=== PATIENT | male | born 1965 | race Caucasian/White ===

== ENCOUNTER 2017-11-08 07:00 | Emergency (ER) | payer BC, OTHER ==
[~2017-11-08] VITALS: Ht 175.3 cm; Wt 176.0 kg
[~2017-11-08 07:00] MED LIST: CEPH500T PO; FURO-69 PO; HYDR-963 PO; LISI40TA PO; METF10003 PO; MUPI15CR TP; POTA10CA PO
[2017-11-08 07:41] LABS: BASO # 0.1 x10^3/uL (0.0-0.2); BASO % 1 % (0-3); EOS # 0.2 x10^3/uL (0.0-0.7); EOS % 2 % (0-3); HEMATOCRIT 45.1 % (39.0-53.0); LYMPH # 0.9 x10^3/uL (1.0-4.8); LYMPH % 9 % (24-48); MEAN CORPUSCULAR HEMOGLOBIN 33 pg (25-35); MEAN CORPUSCULAR HGB CONC 35 g/dL (31-37); MEAN CORPUSCULAR VOLUME 92 fL (79-100); MONO # 0.7 x10^3/uL (0.0-1.1); MONO % 7 % (0-9); NEUT # 7.8 x10^3uL (1.8-7.7); NEUT % 81 % (31-73); PLATELET COUNT 160 x10^3/uL (140-400); RED CELL DISTRIBUTION WIDTH 13.2 % (11.5-14.5); WHITE BLOOD COUNT 9.7 x10^3/uL (4.0-11.0)
[2017-11-08] MEDS ORDERED: ALBUTEROL SULFATE 2.5 MG/3 ML NEBU. NEB ONE (07:45)
[2017-11-08] MEDS ORDERED: IPRATROPIUM BROMIDE 0.5 MG/2.5 ML NEBU. NEB ONE (07:45)
--- NOTE | 2017-11-08 07:45 | EKG ---
[address] [address] Test Date: 2017-11-08 Test Time: 07:23:10 Pat Name: SUMAN OCHOA Department: Room: Gender: M [facility] Specialist: CHANA : 1965 Requested By: KIMBERLY GILL Order Number: [id number] Reading MD: Leon Kumar MD Measurements Intervals [place] Rate: 73 P: 0 GA: 140 QRS: 16 QRSD: 76 T: 60 QT: 360 QTc: 400 Interpretive Statements SINUS RHYTHM Electronically Signed On 11-14-2017 13:28:13 CDT by Leon Kumar MD
[2017-11-08 08:06] LABS: ALBUMIN 3.7 g/dL (3.4-5.0); ALBUMIN/GLOBULIN RATIO 0.9 (1.0-1.7); CALCIUM 8.5 mg/dL (8.5-10.1); CREATININE 0.9 mg/dL (0.7-1.3); GFR 88.3; TOTAL BILIRUBIN 0.7 mg/dL (0.2-1.0); TOTAL PROTEIN 7.8 g/dL (6.4-8.2)
--- NOTE | 2017-11-08 08:15 | RAD ---
CHEST PA LATERAL History: Cough, SOA, denies asthma. Non smoker. pt wt 400lbs Comparison: None. Findings: Cardiac size normal. Tortuous thoracic aorta. Pulmonary vasculature is upper limits of normal. There is left lower lobe airspace disease. Pulmonary vasculature is normal. No pleural effusion or pneumothorax is seen. There is no acute bone abnormality. IMPRESSION: 1. Left lower lobe airspace disease. 2. Borderline pulmonary vascular congestion. Electronically signed by: Terence Sanchez MD (11/08/2017 8:12 AM) [id number]
[2017-11-08 08:28] LABS: POTASSIUM 3.9 mmol/L (3.5-5.1)
[2017-11-08] MEDS ORDERED: cloNIDine HCL 0.1 MG TABLET PO ONE ×2 (08:30→09:30)
--- NOTE | 2017-11-08 09:10 | ED.ADGEN ---
Past History Past Medical History: Hypertension Past Surgical History: Appendectomy, Cholecystectomy Smoking: Non-smoker Alcohol Use: Heavy Drug Use: None Adult General Chief Complaint Chief Complaint Shortness of breath HPI HPI Patient is a 52-year-old male with history of hypertension, dyslipidemia who presents with sore throat 4 days, nonproductive cough and shortness of breath since yesterday at work. No nausea vomiting, no fever chills or sweats. No increased leg pain or swelling. No chest pain or palpitations. Denies orthopnea and paroxysmal nocturnal dyspnea. Denies history of CAD, CHF, COPD, DVT or PE. Patient is a non-smoker and consumes alcohol on a regular basis.. [] Review of Systems Review of Systems ROS as per HPI[] All other systems were reviewed and found to be within normal limits, except as documented in this note. Current Medications Current Medications Current Medications Medications (Trade) Dose Ordered Sig/Haris Start Time Stop Time Status Last Admin Dose Admin Albuterol Sulfate (Ventolin) 5 mg 1X ONCE 11/08/17 07:45 11/08/17 07:47 DC 11/08/17 07:38 5 MG Clonidine HCl (Catapres) 0.2 mg 1X ONCE 11/08/17 08:30 11/08/17 08:31 DC 11/08/17 08:31 0.2 MG Ipratropium [place] (Atrovent) 0.5 mg 1X ONCE 11/08/17 07:45 11/08/17 07:47 DC 11/08/17 07:38 0.5 MG Allergies Allergies Allergies Coded Allergies Type Severity Reaction Last Updated Verified No Known Drug Allergies 12/05/14 No Physical Exam Physical Exam Constitutional: Well developed, well nourished, no acute distress, non-toxic appearance. [] HENT: Normocephalic, atraumatic, bilateral external ears normal, oropharynx moist, no oral exudates, nose normal. [] Eyes: PERRLA, EOMI, conjunctiva normal, no discharge. [] Neck: Normal range of motion, no tenderness, supple, no stridor. [] Cardiovascular:Heart rate regular rhythm, no murmur, 1+ bipedal edema, negative Homans signs. [] Lungs & Thorax: Bilateral breath sounds clear to auscultation coarse rales in left lung hollis. [] Abdomen: Bowel sounds normal, soft, no tenderness. [] Skin: Warm, dry, no erythema, no rash. [] Back: No tenderness. [] Neurologic: Alert and oriented X 3, normal motor function, normal sensory function, no focal deficits noted. [] Psychologic: Affect normal, judgement normal, mood normal. [] Current Patient Data Vital Signs Vital Signs Date Time Temp Pulse Resp B/P (MAP) Pulse Ox O2 Delivery O2 Flow Rate FiO2 11/08/17 08:31 78 170/94 (119) 95 11/08/17 07:39 Room Air 11/08/17 07:14 97.7 20 Lab Results Laboratory Tests Test 11/08/17 07:20 White Blood Count 9.7 x10^3/uL (4.0-11.0) Red Blood Count 4.90 x10^6/uL (4.30-5.70) Hemoglobin 16.0 g/dL (13.0-17.5) Hematocrit 45.1 % (39.0-53.0) Mean Corpuscular Volume 92 fL (79-100) Mean Corpuscular Hemoglobin 33 pg (25-35) Mean Corpuscular Hemoglobin Concent 35 g/dL (31-37) Red Cell Distribution Width 13.2 % (11.5-14.5) Platelet Count 160 x10^3/uL (140-400) Neutrophils (%) (Auto) 81 % (31-73) H Lymphocytes (%) (Auto) 9 % (24-48) L Monocytes (%) (Auto) 7 % (0-9) Eosinophils (%) (Auto) 2 % (0-3) Basophils (%) (Auto) 1 % (0-3) Neutrophils # (Auto) 7.8 x10^3uL (1.8-7.7) H Lymphocytes # (Auto) 0.9 x10^3/uL (1.0-4.8) L Monocytes # (Auto) 0.7 x10^3/uL (0.0-1.1) Eosinophils # (Auto) 0.2 x10^3/uL (0.0-0.7) Basophils # (Auto) 0.1 x10^3/uL (0.0-0.2) D-Dimer (Shakira) 0.40 mg/L (0.00-0.50) Sodium Level 138 mmol/L (136-145) Potassium Level 3.9 mmol/L (3.5-5.1) Chloride Level 102 mmol/L (98-107) Carbon Dioxide Level 30 mmol/L (21-32) Anion Gap 6 (6-14) Blood Urea Nitrogen 13 mg/dL (8-26) Creatinine 0.9 mg/dL (0.7-1.3) Estimated GFR (Cockcroft-Gault) 88.3 BUN/Creatinine Ratio 14 (6-20) Glucose Level 113 mg/dL (70-99) H Calcium Level 8.5 mg/dL (8.5-10.1) Total Bilirubin 0.7 mg/dL (0.2-1.0) Aspartate Amino Transferase (AST) 29 U/L (15-37) Alanine Aminotransferase (ALT) 42 U/L (16-63) Alkaline Phosphatase 68 U/L (46-116) Troponin I Quantitative < 0.017 ng/mL (0-0.055) YH-Gsq-I-Type Natriuretic Peptide 153 pg/mL (0-124) H Total Protein 7.8 g/dL (6.4-8.2) Albumin 3.7 g/dL (3.4-5.0) Albumin/Globulin Ratio 0.9 (1.0-1.7) L EKG EKG [EKG: Sinus rhythm, rate 73, no acute ST-T wave changes, QTC 400.] Radiology/Procedures Radiology/Procedures [Chest x-ray: mild ulmonary vascular congestion, left lower lobe infiltrate] Course & Med Decision Making Course & Med Decision Making Pertinent Labs and Imaging studies reviewed. (See chart for details) [Likely, patient's symptoms, presentation and exam is consistent with pneumonia. Early infiltrate identified on chest x-ray. Patient also noted be hypertensive. First dose of antibiotics given her to departure. He has been out of blood pressure medication for 2 years. Repeat clonidine given in the emergency department. I discussed as with the patient importance of routine healthcare, medication compliance and the need to follow up with his primary care physician. Patient agrees to contact his PCP and set up appointment later this week. Return cautions reviewed.] Final Impression Final Impression 1. Shortness of breath 2. Pneumonia 3. Hypertension 4. Medication non-compliance Dragon Disclaimer Dragon Disclaimer This electronic medical record was generated, in whole or in part, using a voice recognition dictation system. KIMBERLY GILL DO Nov 08, 2017 09:10
[2017-11-08] MEDS ORDERED: LISI40TA PO (09:14)
[2017-11-08] MEDS ORDERED: LEVO750T31 PO (09:14)
[2017-11-08 09:22] VITALS: BP 180/99
[2017-11-08] MEDS ORDERED: levoFLOXacin 500 MG TABLET PO ONE (09:45)
[2017-11-08] MEDS ORDERED: METH4TAB2 PO (20:55)
[2017-11-08] MEDS ORDERED: ALBU18HF IH (20:55)
[2017-11-08] MEDS ORDERED: HYDR25TA PO (20:55)
== END 2017-11-08 09:18 | disposition home or self-care (01) ==
LOC: ER 07:00
DX: J18.9 Pneumonia, unspecified organism (principal); I10 Essential (primary) hypertension; E78.5 Hyperlipidemia, unspecified; F10.20 Alcohol dependence, uncomplicated; Z91.14 Patient's other noncompliance with medication regimen
CPT/HCPCS: 36415; 71046; 80053; 83880; 84484; 85025; 85379; 93005; 94644; 99285; J7613; J7644

== ENCOUNTER 2017-11-08 19:20 | Emergency (ER) | payer BC ==
[~2017-11-08] VITALS: Ht 175.3 cm; Wt 175.8 kg
[~2017-11-08 19:20] MED LIST changes: +LEVO750T31 PO
[2017-11-08] MEDS ORDERED: hydrOXYzine HCL 25 MG TABLET PO STA (20:06)
[2017-11-08] MEDS ORDERED: IPRATRPIUM/ALBUTEROL 0.5/2.5MG 3 ML NEBU. NEB ONE (20:15)
[2017-11-08 20:24] VITALS: BP 126/74
[2017-11-08] MEDS ORDERED: METH4TAB2 PO (20:55)
[2017-11-08] MEDS ORDERED: HYDR25TA PO (20:55)
[2017-11-08] MEDS ORDERED: ALBU18HF IH (20:55)
--- NOTE | 2017-11-08 20:55 | PHYS DOC ---
Past History Past Medical History: Hypertension Past Surgical History: Appendectomy, Cholecystectomy Smoking: Non-smoker Alcohol Use: Heavy Drug Use: None Adult General Chief Complaint Chief Complaint: ANXIETY/PANIC ATTACK HPI HPI Patient is a 52 year old male who presents with complaint of feelings of anxiety. The patient was seen earlier today in the emergency department with cough and wheezing. The patient was diagnosed with a left lower lobe pneumonia and was started on Levaquin therapy. Patient states that he took his Levaquin approximately 1 hour prior to arrival in the emergency department. The patient states that throughout the day he has been having symptoms of agitation and anxiety. The patient states that he does not normally have trouble with anxiety but has had an episode in the past that resolved without treatment. The patient states that he is worried about his current condition which has been making him feel more anxious. Patient denies any worsening shortness of breath or chest pain. Patient states he does have wheezing but states that this has improved significantly after his initial treatment today in the emergency department. Patient denies any active fevers, nausea, vomiting, or abdominal pain. Review of Systems Review of Systems Constitutional: Denies fever or chills [] Eyes: Denies change in visual acuity, redness, or eye pain [] HENT: Denies nasal congestion or sore throat [] Respiratory: Wheezing, cough[] Cardiovascular: Denies chest pain or edema[] GI: Denies abdominal pain, nausea, vomiting, bloody stools or diarrhea [] : Denies dysuria or hematuria [] Musculoskeletal: Denies back pain or joint pain [] Integument: Denies rash or skin lesions [] Neurologic: Denies headache, focal weakness or sensory changes [] All other systems were reviewed and found to be within normal limits, except as documented in this note. Current Medications Current Medications Current Medications Medications (Trade) Dose Ordered Sig/Haris Start Time Stop Time Status Last Admin Dose Admin Albuterol/ Ipratropium (Duoneb) 3 ml 1X ONCE 11/08/17 20:15 11/08/17 20:16 DC 11/08/17 20:09 3 ML Hydroxyzine HCl (Atarax) 25 mg 1X STAT 11/08/17 20:06 11/08/17 20:07 DC 11/08/17 20:09 25 MG Allergies Allergies Allergies Coded Allergies Type Severity Reaction Last Updated Verified No Known Drug Allergies 12/05/14 No Physical Exam Physical Exam Constitutional: Alert, afebrile, morbidly obese, appears mildly anxious. [] HENT: Normocephalic, atraumatic, bilateral external ears normal, oropharynx moist, no oral exudates, nose normal. [] Eyes: PERRLA, EOMI, conjunctiva normal, no discharge. [] Neck: Normal range of motion, no tenderness, supple, no stridor. [] Cardiovascular:Heart rate regular rhythm, no murmur [] Lungs & Thorax: Mildly restricted air movement bilaterally, extremity wheezes bilaterally, no rales[] Abdomen: Bowel sounds normal, soft, no tenderness, no masses, no pulsatile masses. [] Skin: Warm, dry, no erythema, no rash. [] Back: No tenderness, no CVA tenderness. [] Extremities: No tenderness, no cyanosis, no clubbing, ROM intact, no edema. [] Neurologic: Alert and oriented X 3, normal motor function, normal sensory function, no focal deficits noted. [] Current Patient Data Vital Signs Vital Signs Date Time Temp Pulse Resp B/P (MAP) Pulse Ox O2 Delivery O2 Flow Rate FiO2 11/08/17 20:24 82 20 126/74 (91) 95 Room Air 11/08/17 19:34 98.3 Lab Results Labs reviewed from previous visit earlier today, no significant findings. EKG EKG Rhythm strip interpretation by me: Heart rate 85, normal sinus rhythm, no ectopy [] Radiology/Procedures Radiology/Procedures None performed[] Course & Med Decision Making Course & Med Decision Making Pertinent Labs and Imaging studies reviewed. (See chart for details) The patient was given a DuoNeb breathing treatment and also given hydroxyzine to address anxiety. On reevaluation the patient states that he has noted improvement in symptoms. Patient prescribed hydroxyzine for continued treatment at home of anxiety and patient also was prescribed albuterol inhaler and Medrol Dosepak for continued treatment of reactive bronchospasm secondary to the patient's pneumonia diagnosed earlier today. The patient at this time appears stable and appropriate for outpatient treatment. Advised follow-up in 2 days with patient's primary care provider and return to emergency department for any worsening symptoms. Patient was understanding and in agreement with treatment plan. Dragon Disclaimer Dragon Disclaimer This electronic medical record was generated, in whole or in part, using a voice recognition dictation system. Departure Departure: Impression: Primary Impression: Anxiety Additional Impression: Bronchitis Disposition: 01 HOME, SELF-CARE Condition: STABLE Referrals: TJ GONZALEZ (PCP) Patient Instructions: Acute Bronchitis, Anxiety and Panic Attacks Additional Instructions: Follow-up with your primary doctor in 2 days for reevaluation. Return to the emergency department for any worsening symptoms. Scripts Hydroxyzine Hcl (HYDROXYZINE HCL) 25 Mg Tablet 1 TAB PO TID PRN for ANXIETY / AGITATION, #30 TAB Prov: FARAZ CALDWELL MD 11/08/17 Albuterol Sulfate (VENTOLIN HFA INHALER) 18 Gm Hfa.aer.ad 2 PUFF IH Q4HRS PRN for WHEEZING, #1 INHALER 0 Refills Prov: FARAZ CALDWELL MD 11/08/17 Methylprednisolone (MEDROL) 4 Mg Tab.ds.pk 1 PKG PO UD, #1 PKG Prov: FARAZ CALDWELL MD 11/08/17 Problem Qualifiers FARAZ CALDWELL MD Nov 08, 2017 20:55
== END 2017-11-08 21:02 | disposition home or self-care (01) ==
LOC: ER 19:20
DX: F41.9 Anxiety disorder, unspecified (principal); J40 Bronchitis, not specified as acute or chronic; I10 Essential (primary) hypertension
CPT/HCPCS: 94640; 99283; J7620